=== PATIENT | male | born 1955 | race Caucasian/White ===

== ENCOUNTER → 2022-05-28 08:50 | Outpatient (BNVA) | payer OTHER, SELFPAY | PROVIDERS: PCP Family Medicine; Visit Provider Family Medicine | DX: Z12.5 Encounter for screening for malignant neoplasm of prostate (principal); Z13.220 Encounter for screening for lipoid disorders; Z13.6 Encounter for screening for cardiovascular disorders; Z76.89 Persons encountering health services in other specified circumstances | CPT/HCPCS: 80053; 80061; 84153; 85025 ==

== ENCOUNTER → 2024-02-10 11:30 | Outpatient (BNVA) | payer OTHER, SELFPAY | PROVIDERS: PCP Family Medicine; Visit Provider Family Medicine | DX: R41.3 Other amnesia (principal); Z13.220 Encounter for screening for lipoid disorders; Z13.6 Encounter for screening for cardiovascular disorders; Z12.5 Encounter for screening for malignant neoplasm of prostate; E78.5 Hyperlipidemia, unspecified; E55.9 Vitamin D deficiency, unspecified; R79.89 Other specified abnormal findings of blood chemistry; E83.42 Hypomagnesemia | CPT/HCPCS: 80053; 80061; 82306; 82607; 82728; 82746; 83540; 83735; 84443; 85025; G0103 ==

== ENCOUNTER 2024-05-15 09:08 | Outpatient (CLI) | payer OTHER, SELFPAY ==
--- NOTE | 2024-05-15 09:15 | MR_ITS ---
WS: [id number] MRI BRAIN WITH HIGH-RESOLUTION IMAGING THROUGH THE INTERNAL AUDITORY CANALS WITHOUT AND WITH CONTRAST HISTORY: BILATERAL HEARING LOSS, SENSORINEURAL COMPARISON: None available. TECHNIQUE: Multiplanar, multisequence imaging is performed through the brain. Additional 3 mm imaging performed in multiple planes through the internal auditory canal. Postcontrast imaging with 17 ml's of MultiHance. No acute intracranial hemorrhage, midline shift, edema or mass effect. Moderate bilateral symmetric atrophy involving the frontal and temporal lobes. Mild cerebellar atrophy. Mild small vessel ischemic type changes slightly greater on the RIGHT. No prior large infarct. Ventricles and extra-axial spaces are normal. No inferior displacement of cerebellar tonsils. Clivus and pituitary gland are normal. Internal and external auditory canals: Unremarkable. Cranial nerves VII and VIII complexes: Unremarkable. No enhancement or mass. Cerebellopontine angles: Normal. Paranasal sinuses: Mild mucoperiosteal thickening in the maxillary sinuses. No air-fluid levels. Mastoid air cells: Normal. Calvarium and scalp: Normal. Visualized [place] and dural venous sinuses demonstrate no abnormality. MR/MR iac's wo/w con* [id number] IMPRESSION: 1. Normal internal auditory canals. No mass or signal abnormality. 2. Normal cerebellar angles. 3. Moderate bilateral symmetric atrophy involving the frontal and temporal lob es. 4. Mild small vessel ischemic changes in the supratentorial brain.
[2024-05-15] MEDS: gadobenate dimeglumine 20 mL vial 17 ML IV (10:29)
== END 2024-05-15 09:09 | disposition home or self-care (01) ==
PROVIDERS: PCP Family Medicine; Visit Provider Specialist
DX: H90.3 Sensorineural hearing loss, bilateral (principal); G31.89 Other specified degenerative diseases of nervous system; R93.0 Abnormal findings on diagnostic imaging of skull and head, not elsewhere classified; J32.0 Chronic maxillary sinusitis
CPT/HCPCS: 70553; A9577

== ENCOUNTER → 2024-06-10 12:26 | Outpatient (BNVA) | payer OTHER, SELFPAY | PROVIDERS: PCP Family Medicine; Referring Provider Family Medicine; Visit Provider Psychiatry & Neurology Neurology | DX: E55.9 Vitamin D deficiency, unspecified (principal); E53.8 Deficiency of other specified B group vitamins; G30.9 Alzheimer's disease, unspecified; F02.80 Dementia in other diseases classified elsewhere, unspecified severity, without behavioral disturbance, psychotic disturbance, mood disturbance, and anxiety; R41.3 Other amnesia; Z12.5 Encounter for screening for malignant neoplasm of prostate; F91.8 Other conduct disorders | CPT/HCPCS: 0346U; 36415; 82306; 82542; 82607; 83921; 84153 ==

== ENCOUNTER 2024-06-12 08:45 | Outpatient (CLI) | payer OTHER, SELFPAY ==
[2024-06-14 20:25] LABS: Phosphorylated tau217 0.14 pg/mL (< OR = 0.15)
== END 2024-06-12 08:46 | disposition home or self-care (01) ==
PROVIDERS: PCP Family Medicine; Visit Provider Psychiatry & Neurology Neurology
DX: F91.8 Other conduct disorders (principal); G30.9 Alzheimer's disease, unspecified; F02.80 Dementia in other diseases classified elsewhere, unspecified severity, without behavioral disturbance, psychotic disturbance, mood disturbance, and anxiety; R41.3 Other amnesia
CPT/HCPCS: 36415; 83520

== ENCOUNTER 2024-06-25 07:49 | Outpatient (CLI) | payer OTHER, SELFPAY ==
--- NOTE | 2024-06-25 08:30 | MR_ITS ---
WS: [id number] MRA ANGIOGRAPHY [place] HISTORY: R93.89 - Abnormal findings on diagnostic imaging of other... COMPARISON: MRI 05/15/2024 TECHNIQUE: 3-D MR angiography is performed of the [place]. All images are reviewed including source images. Distal vertebral arteries are both patent with the LEFT being dominant. Normal basilar artery. Posterior cerebral arteries are well opacified. Small caliber posterior communicating artery on the LEFT. Dominant RIGHT posterior communicating artery. Minimal atherosclerotic plaque in the supraclinoid carotid arteries. No occlusions. Very mild narrowing of the RIGHT M1 segment with no high-grade stenosis. No paucity of vessels in the distal MCA territories. No aneurysms. Anterior cerebral arteries and the anterior communicating artery are normal. MR/MR angio head wo con [id number] IMPRESSION: 1. No occlusions or aneurysms in the [place]. 2. Minimal atherosclerotic disease of the supraclinoid carotid arteries and th e RIGHT M1 segment with no high-grade stenosis.
--- NOTE | 2024-06-25 08:45 | MR_ITS ---
WS: [id number] MRA CAROTID ARTERIES HISTORY: R93.89 - Abnormal findings on diagnostic imaging of other... COMPARISON: None available. TECHNIQUE: MRA is performed with intravenous gadolinium. MIP and source images are reviewed. Right: Normal cervical carotid artery. Mild narrowing of the proximal RIGHT internal carotid artery with no high-grade stenosis. Stenosis estimated at less than 50%. External carotid artery widely patent. Left: Normal LEFT cervical carotid artery. Normal internal and external carotid arteries. Subclavian Arteries: Normal. Vertebral Arteries: Vertebral arteries are both patent. RIGHT vertebral artery is small caliber than the LEFT. Dominant LEFT vertebral artery. MR/MR angio neck w con* [id number] IMPRESSION: 1. No high-grade cervical carotid artery stenosis. 2. Very minimal narrowing, less than 50% proximal RIGHT ICA. 3. Dominant LEFT vertebral artery.
[2024-06-25] MEDS: gadobenate dimeglumine 20 mL vial IV (09:00)
== END 2024-06-25 07:50 | disposition home or self-care (01) ==
LOC: RAD 07:50
PROVIDERS: PCP Family Medicine; Visit Provider Psychiatry & Neurology Neurology
DX: R93.89 Abnormal findings on diagnostic imaging of other specified body structures (principal); R93.0 Abnormal findings on diagnostic imaging of skull and head, not elsewhere classified; I65.21 Occlusion and stenosis of right carotid artery
CPT/HCPCS: 70544; 70548; A9577

== ENCOUNTER 2024-07-20 15:00 | Oncology outpatient (recurring) (ONCR) | payer OTHER, SELFPAY | END 2024-08-01 23:59 | disposition home or self-care (01) | PROVIDERS: PCP Family Medicine; Visit Provider Internal Medicine Medical Oncology | DX: Z53.9 Procedure and treatment not carried out, unspecified reason (principal) ==

== ENCOUNTER 2024-10-19 14:26 | Oncology outpatient (recurring) (ONCR) | payer OTHER, SELFPAY ==
[2024-10-19 14:55] LABS: Hematocrit 44.8 % (37-53); Hemoglobin 15.50 g/dL (11.27-16.99); Mean Corpuscular HGB Conc 34.6 g/dL (30-55); Mean Corpuscular Hemoglobin 31.1 pg (27-33); Mean Corpuscular Volume 90.0 fl (82-101); Nucleated Red Blood Cells % 0 %; Platelet Count 287 10^3/cmm (157-399); Red Blood Count 4.98 10^6/uL (3.85-5.65); White Blood Count 10.27 10^3/uL (3.29-11.43)
[2024-10-19 15:14] LABS: Alanine Aminotransferase 17 U/L (0-41); Albumin Level 3.9 g/dL (3.5-5.2); Alkaline Phosphatase 75 U/L (40-130); Anion Gap 11.9 (5-19); Aspartate Amino Transferase 14 U/L (0-40); Blood Urea Nitrogen 11 mg/dL (8-23); Calcium 9.3 mg/dL (8.5-10.5); Carbon Dioxide 25 mmol/L (22-29); Chloride 105 mmol/L (98-107); Creatinine Clr Calc Pharmacy 72.8506; Globulin 3.0 g/dL (1.3-4.6); Glucose 93 mg/dL (65-115); Osmolality Calculated 285 mOsm/kg (285-295); Potassium 3.9 mmol/L (3.5-5.1); Sodium 138 mmol/L (136-145); Total Protein 6.9 g/dL (6.6-8.7)
[2024-10-19 15:28] LABS: Vitamin B12 513 pg/mL (232-1245)
== END 2024-11-01 23:59 | disposition home or self-care (01) ==
PROVIDERS: PCP Family Medicine; Visit Provider Internal Medicine Medical Oncology
DX: E53.8 Deficiency of other specified B group vitamins (principal)
CPT/HCPCS: 36415; 80053; 82607; 85025